=== PATIENT | male | born 1955 | race Caucasian/White ===

== ENCOUNTER 2017-02-21 13:11 | Emergency (ER) | payer MEDICAID ==
[2017-02-21 13:33] VITALS: BP 152/89
--- NOTE | 2017-02-21 13:43 | EDM.PDOC ---
ED HPI GENERAL MEDICAL PROBLEM - General Chief Complaint: General Stated Complaint: POSSIBLE RECURRENT GOUT Time Seen by Provider: 02/21/17 13:31 Source of Information: Reports: Patient History Limitations: Reports: No Limitations - History of Present Illness INITIAL COMMENTS - FREE TEXT/NARRATIVE: HISTORY AND PHYSICAL: History of present illness: Patient is a 61-year-old male who presents to the emergency room today with concerns of reoccurring gout. He states he does this frequently, and does take allopurinol routinely. States he ran out of prednisone, indomethacin, and vicoden for his flareups, and is hoping to get a refill. His primary care provider is in [place] but is out working and [place] for training at this time. He called his PCP and he was instructed to come to [place] for refills. Currently has pain in his left great toe and bilateral elbows. Tender to the touch and warmth to the area. Denies any recent injury or trauma. Review of systems: As per history of present illness and below otherwise all systems reviewed and negative. Past medical history: As per history of present illness and as reviewed below otherwise noncontributory. Surgical history: As per history of present illness and as reviewed below otherwise noncontributory. Social history: No reported history of drug or alcohol abuse. Family history: As per history of present illness and as reviewed below otherwise noncontributory. Physical exam: Gen.: Well-developed and well-nourished 61-year-old male. Appears nontoxic and in no acute distress. Alert and oriented. HEENT: Atraumatic, normocephalic, pupils reactive, negative for conjunctival pallor or scleral icterus, mucous membranes moist, throat clear, neck supple, nontender, trachea midline. Lungs: Clear to auscultation, breath sounds equal bilaterally, chest nontender. Heart: S1S2, regular, negative for clicks, rubs, or JVD. Abdomen: Soft, nondistended, nontender. Negative for masses or hepatosplenomegaly. Negative for costovertebral tenderness. Pelvis: Stable nontender. Genitourinary: Deferred. Rectal: Deferred. Extremities: Atraumatic, negative for cords or calf pain. Neurovascular unremarkable. Skin: Left great toe is erythematous and tender to palpation. Intact and dry. Neuro: Awake, alert, oriented. Cranial nerves II through XII unremarkable. Cerebellum unremarkable. Motor and sensory unremarkable throughout. Exam nonfocal. A prescription for Medrol Dosepak, take as directed, dispense 1-no refill. Colchicine 0.6 mg, 2 tabs now then 1 tab in an hour, dispense 3-no refill. Indomethacin 50 mg 1 tab 3 times a day when necessary 10 days, dispense 30-no refill. He should states that this is his usual medication regimen he takes when he has a flareup, he is aware of the medications and their usage. Discussed following up with his primary care provider for further refills. Voices understanding and is agreeable to plan of care. Denies any further questions at this time. Diagnostics: CBC, uric acid Therapeutics: [] Impression: Acute gout Plan: 1. Please take your prescriptions as directed. Please do not take any additional NSAIDs such as ibuprofen or Aleve while taking the indomethacin. Take this medication with food. For further medication refills please see her doctor in [place]. 2. Return to the ED as needed and as discussed. Definitive disposition and diagnosis as appropriate pending reevaluation and review of above. Onset: Today Duration: Day(s):, Chronic Location: Reports: Lower Extremity, Left Left 1-Hallux Pain Score (Numeric/FACES): 8 Left Elbow Pain Score (Numeric/FACES): 8 - Related Data Allergies Allergy/AdvReac Type Severity Reaction Status Date / Time No Known Allergies Allergy Verified 02/21/17 13:29 Home Meds: Home Meds Metoprolol Tartrate 50 mg PO BID 05/26/16 [History] Acetaminophen [Tylenol Extra Strength] 500 mg PO ASDIRECTED PRN 01/21/17 [ History] Allopurinol [Zyloprim] 100 mg PO DAILY #30 tablet 01/24/17 [Rx] Warfarin [Coumadin] 1 mg PO ASDIRECTED #30 tablet 01/24/17 [Rx] Hydrocodone/Acetaminophen [Vicodin 5-300 mg Tablet] 300 mg PO BID PRN 02/21/17 [ History] prednisoLONE [Millipred DP] 5 mg PO DAILY 02/21/17 [History] Past Medical History - Past Health History Medical/Surgical History: Denies Medical/Surgical History HEENT History: Reports: Other (See Below) Other HEENT History: ears cauterized when he was young. Cardiovascular History: Reports: Afib, Hypertension Other Cardiovascular History: stopped taking xarelto as could not afford it but is on adult asa Respiratory History: Reports: SOB Musculoskeletal History: Reports: Gout Other Musculoskeletal History: chronic pain in feet Other Neuro History: broken neck, Halo Psychiatric History: Reports: Addiction Hematologic History: Reports: None Immunologic History: Reports: None Oncologic (Cancer) History: Reports: None - Infectious Disease History Infectious Disease History: Reports: Other (See Below) Other Infectious Disease History: rickiets - Past Surgical History Head Surgeries/Procedures: Reports: None Other Cardiovascular Surgeries/Procedures: angiogram Oncologic Surgical History: Reports: None Social & Family History - Family History Family Medical History: Noncontributory - Tobacco Use Smoking Status *Q: Never Smoker Second Hand Smoke Exposure: No - Caffeine Use Caffeine Use: Reports: Coffee - Alcohol Use Days Per Week of Alcohol Use: 3 Number of Drinks Per Day: 0 Total Drinks Per Week: 0 - Recreational Drug Use Recreational Drug Use: No Drug Use in Last 12 Months: No Recreational Drug Type: Reports: Marijuana/Hashish Recreational Drug Use Frequency: Rarely - Living Situation & Occupation Living situation: Reports: Occupation: Employed ED ROS GENERAL - Review of Systems Review Of Systems: ROS reveals no pertinent complaints other than HPI. ED EXAM, GENERAL - Physical Exam Exam: See Below (See dictation) Course - Vital Signs Last Recorded V/S: Last Vital Signs Temp 96.2 F 02/21/17 13:31 Pulse 98 02/21/17 13:31 Resp 18 02/21/17 13:31 BP 152/89 H 02/21/17 13:31 Pulse Ox 98 02/21/17 13:31 - Orders/Labs/Meds Labs: Laboratory Tests 02/21/17 02/21/17 Range/Units 13:39 13:39 WBC 10.58 (4.0-11.0) K/uL RBC 5.16 (4.50-5.90) M/uL Hgb 16.5 (13.0-17.0) g/dL Hct 47.4 (38.0-50.0) % MCV 91.9 (80.0-98.0) fL MCH 32.0 (27.0-32.0) pg MCHC 34.8 (31.0-37.0) g/dL RDW Std Deviation 44.9 (28.0-62.0) fl RDW Coeff of Mckenna 13 (11.0-15.0) % Plt Count 234 (150-400) K/uL MPV 9.90 (7.40-12.00) fL Add Manual Diff YES Neutrophils % (Manual) 49 (48.0-80.0) % Lymphocytes % (Manual) 44 H (16.0-40.0) % Monocytes % (Manual) 5 (0.0-15.0) % Eosinophils % (Manual) 3 (0.0-7.0) % Nucleated RBC % 0.0 /100WBC Absolute Seg Neuts 5.2 (1.4-5.7) Lymphocytes # (Manual) 4.7 H (0.6-2.4) Monocytes # (Manual) 0.5 (0.0-0.8) Eosinophils # (Manual) 0.3 (0.0-0.7) Nucleated RBCs # 0 K/uL Uric Acid 8.0 H (2.1-7.4) mg/dL Departure - Departure Time of Disposition: 14:15 Disposition: Home, Self-Care 01 Clinical Impression: Gout Qualifiers: Gout site: toe Gout etiology: unspecified cause Chronicity: acute Laterality: left Qualified Code(s): M10.9 - Gout, unspecified - Discharge Information Referrals: PCP,None [Primary Care Provider] - Forms: ED Department Discharge Additional Instructions: My general discharge The following information is given to patients seen in the emergency department who are being discharged to home. This information is to outline your options for follow-up care. We provide all patients seen in our emergency department with a follow-up referral. The need for follow-up, as well as the timing and circumstances, are variable depending upon the specifics of your emergency department visit. If you don't have a primary care physician on staff, we will provide you with a referral. We always advise you to contact your personal physician following an emergency department visit to inform them of the circumstance of the visit and for follow-up with them and/or the need for any referrals to a consulting specialist. The emergency department will also refer you to a specialist when appropriate. This referral assures that you have the opportunity for follow-up care with a specialist. All of these measure are taken in an effort to provide you with optimal care, which includes your follow-up. Under all circumstances we always encourage you to contact your private physician who remains a resource for coordinating your care. When calling for follow-up care, please make the office aware that this follow-up is from your recent emergency room visit. If for any reason you are refused follow-up, please contact the [facility] Emergency Department at and asked to speak to the emergency department charge nurse. [facility] Primary Care [facility] [place] [phone] 1. Please take your prescriptions as directed. Please do not take any additional NSAIDs such as ibuprofen or Aleve while taking the indomethacin. Take this medication with food. For further medication refills please see her doctor in [place]. 2. Return to the ED as needed and as discussed.
== END 2017-02-21 14:22 | disposition home or self-care (01) ==
LOC: MW.ED 13:11
DX: M10.9 Gout, unspecified (principal); I10 Essential (primary) hypertension; I48.91 Unspecified atrial fibrillation; Z79.01 Long term (current) use of anticoagulants; Z79.899 Other long term (current) drug therapy
CPT/HCPCS: 36415; 84550; 85025; 99283

== ENCOUNTER 2020-05-11 15:44 | Observation (INO) | payer MEDICAID ==
[2020-05-11] MEDS ORDERED: Diltiazem 25 MG/5 ML SDV IVPUSH ONE ×3 (16:11→18:54)
[2020-05-11] MEDS ORDERED: Sodium Chloride 0.9% 1,000 ML IV ONE (16:11)
[2020-05-11] MEDS ORDERED: Sodium Chloride 0.9% 10 ML Syringe FLUSH PRN (16:11)
[2020-05-11] MEDS ORDERED: Sodium Chloride 0.9% 2.5 ML Syringe FLUSH PRN (16:11)
--- NOTE | 2020-05-11 16:13 | PCM.EKG ---
#1 Interpretation EKG Date: 05/11/20 Rhythm: A-Fib EKG Interpretation Comments: Heart rate = 171 bpm, atrial fibrillation with RVR, normal QRS interval, no STEMI. EKG and rhythm strip interpreted by me at 1530
--- NOTE | 2020-05-11 16:42 | CR ---
INDICATION: a fib w RVR TECHNIQUE: Chest 1 view. COMPARISON: None. FINDINGS: Cardiovascular and mediastinum: Heart size and vasculature are normal in caliber and appearance. Mediastinum is within normal limits. Lungs and pleural space: Lungs are clear. No sign of infiltrate or mass. No sign of pleural effusion. No pneumothorax. Bones and soft tissues: No significant findings. IMPRESSION: Unremarkable chest. Dictated by: Stephen Mederos MD @ 05/11/2020 16:41:09 (Electronically Signed)
[2020-05-11 16:45] LABS: BLOOD UREA NITROGEN,BUN 16 mg/dL (7.0-18.0); CARBON DIOXIDE,CO2 22.5 mmol/L (21.0-32.0); CHLORIDE,CL 100 mmol/L (98-107); GLUCOSE RANDOM 128 mg/dL (74-106); POTASSIUM,K 4.6 mmol/L (3.5-5.1); SODIUM,NA 139 mmol/L (136-148)
--- NOTE | 2020-05-11 18:27 | PCM.EKG ---
#2 Interpretation EKG Interpretation Comments: Heart rate = 112 bpm, atrial fibrillation, normal QRS interval, TW inversion on V3-V6, no STEMI. EKG and rhythm strip interpreted by me at 1811
[2020-05-11] MEDS ORDERED: Diltiazem 100 MG in Sodium Chloride 0.9% 100 ML IV SCH (18:30)
[2020-05-11] MEDS ORDERED: Ketorolac 30 MG/ML SDV IVPUSH ONE (18:34)
[2020-05-11] MEDS ORDERED: HYDROmorphone 2 MG/ML Syringe IVPUSH ONE (18:34)
[2020-05-11] MEDS ORDERED: Diltiazem 120 MG Cap.CD PO ONE (19:28)
[2020-05-11 19:37] LABS: CORONAVIRUS COVID-19 NAA NEGATIVE (NEGATIVE); INFLUENZA A NAA NEGATIVE (NEGATIVE); INFLUENZA B NAA NEGATIVE (NEGATIVE)
[2020-05-11] MEDS ORDERED: Iopamidol 755 MG/ML 500 ML Multipack Bottle IVPUSH STA (19:46)
--- NOTE | 2020-05-11 20:23 | PCM.HP.2 ---
H&P History of Present Illness - General Date of Service: 05/11/20 Admit Problem/Dx: Admission Diagnosis/Problem Admission Diagnosis/Problem Atrial fibrillation with rapid ventricular response Source of Information: Patient History Limitations: Reports: No Limitations - History of Present Illness Initial Comments - Free Text/Narative: 64-year-old male presents today complaining of left great toe pain as well as mild SOB and palpitations. He has a PMH of a-fib, CKD, HTN, CHF and gout. Patient reports that he ran out of his metoprolol several days ago. He also takes a blood thinner that starts with a "P" but cannot recall exactly what the name is. He states that he did take his blood this morning. For his toe pain, he usually takes colchicine and last took it a few days ago. He has not had any fevers, chills, sore throat, cough, chest pain, nausea, vomiting, abdominal pain, diarrhea, blood in stool, blood in urine, urinary urgency, numbness or tingling in extremities. In the ER, EKG showed a-fib with HR 112 and T-wave inversions in V3-V6. Creatinine was 1.4, D-dimer 0.85, BNP 204 and troponin was negative. UA positive for nitrites and 1+ bacteria. CXR unremarkable. COVID-19 test negative. Patient was given IV diltiazem push x 3 and then became rate controlled with HR [address] angio negative for PE. Patient admitted for further evaluation and treatment. - Related Data Allergies/Adverse Reactions: Allergies Allergy/AdvReac Type Severity Reaction Status Date / Time No Known Allergies Allergy Verified 05/11/20 15:56 Home Medications: Home Meds Colchicine 1 tab PO Q12H #10 tablet 01/02/20 [Rx] Metoprolol Tartrate 25 mg PO DAILY 05/11/20 [History] Past Medical History - Past Health History Medical/Surgical History: Denies Medical/Surgical History HEENT History: Reports: Other (See Below) Other HEENT History: ears cauterized when he was young. Cardiovascular History: Reports: Afib, Heart Failure, High Cholesterol, Hypertension Other Cardiovascular History: stopped taking xarelto as could not afford it but is on adult asa Respiratory History: Reports: SOB Musculoskeletal History: Reports: Fracture, Gout Other Musculoskeletal History: chronic pain in feet Other Neuro History: broken neck, Halo Psychiatric History: Reports: Addiction Endocrine/Metabolic History: Reports: Hypothyroidism Hematologic History: Reports: None Immunologic History: Reports: None Oncologic (Cancer) History: Reports: None - Infectious Disease History Infectious Disease History: Reports: Other (See Below) Other Infectious Disease History: rickiets - Past Surgical History Head Surgeries/Procedures: Reports: None HEENT Surgical History: Reports: None Cardiovascular Surgical History: Reports: Other (See Below) Other Cardiovascular Surgeries/Procedures: angiogram Neurological Surgical History: Reports: C-Spine Musculoskeletal Surgical History: Reports: Arthroscopic Knee, Other (See Below) Oncologic Surgical History: Reports: None Social & Family History - Family History Family Medical History: No Pertinent Family History - Tobacco Use Tobacco Use Status *Q: Never Tobacco User - Caffeine Use Caffeine Use: Reports: None - Recreational Drug Use Recreational Drug Use: No - Living Situation & Occupation Living situation: Reports: Single, Alone Occupation: Employed (lease purchase truck driver) H&P Review of Systems - Review of Systems: Review Of Systems: Comprehensive ROS is negative, except as noted in HPI. Exam - Exam Exam: See Below - Vital Signs Vital Signs: Last Vital Signs Temp 36.6 C 05/11/20 18:50 Pulse 89 05/11/20 19:02 Resp 12 05/11/20 19:02 BP 116/78 05/11/20 19:02 Pulse Ox 98 05/11/20 19:02 Weight: 95.254 kg - Exam General: Alert, Oriented, Cooperative, Other (NAD) HEENT: Conjunctiva Clear, EOMI, Hearing Intact, Pupils Equal, Pupils Reactive Neck: Supple, Trachea Midline. No: JVD Lungs: Clear to Auscultation, Normal Respiratory Effort Cardiovascular: Irregular Rhythm, Tachycardia GI/Abdominal Exam: Normal Bowel Sounds, Soft, Non-Tender, No Distention Extremities: Normal Inspection, Other (Left big toe edema, mild erythema) Peripheral Pulses: 2+: Radial (L), Radial (R) Skin: Warm, Dry, Intact Neurological: Cranial Nerves Intact, Strength Equal Bilateral, Normal Speech, Normal Tone Psychiatric: Alert, Normal Affect, Normal Mood - Patient Data Lab Results Last 24 hrs: Laboratory Results - last 24 hr 05/11/20 05/11/20 05/11/20 Range/Units 16:11 16:11 16:11 WBC 10.90 (4.0-11.0) K/uL RBC 5.90 (4.50-5.90) M/uL Hgb 18.9 H (13.0-17.0) g/dL Hct 54.4 H (38.0-50.0) % MCV 92.2 (80.0-98.0) fL MCH 32.0 (27.0-32.0) pg MCHC 34.7 (31.0-37.0) g/dL RDW Std Deviation 48.8 (28.0-62.0) fl RDW Coeff of Mckenna 15 (11.0-15.0) % Plt Count 240 (150-400) K/uL MPV 10.00 (7.40-12.00) fL Neut % (Auto) 57.1 (48.0-80.0) % Lymph % (Auto) 34.2 (16.0-40.0) % [place] % (Auto) 8.2 (0.0-15.0) % Eos % (Auto) 0.3 (0.0-7.0) % Baso % (Auto) 0.2 (0.0-1.5) % Neut # (Auto) 6.2 H (1.4-5.7) K/uL Lymph # (Auto) 3.7 H (0.6-2.4) K/uL [place] # (Auto) 0.9 H (0.0-0.8) K/uL Eos # (Auto) 0.0 (0.0-0.7) K/uL Baso # (Auto) 0.0 (0.0-0.1) K/uL Nucleated RBC % 0.0 /100WBC Nucleated RBCs # 0 K/uL D-Dimer, Quantitative (0.0-0.50) mg/L FEU Sodium 139 (136-148) mmol/L Potassium 4.6 (3.5-5.1) mmol/L Chloride 100 (98-107) mmol/L Carbon Dioxide 22.5 (21.0-32.0) mmol/L BUN 16 (7.0-18.0) mg/dL Creatinine 1.4 H (0.8-1.3) mg/dL Est Cr Clr Drug Dosing 60.05 mL/min Estimated GFR (MDRD) 51.4 ml/min Glucose 128 H (74-106) mg/dL Calcium 9.7 (8.5-10.1) mg/dL Magnesium (1.8-2.4) mg/dL Total Bilirubin 2.2 H (0.2-1.0) mg/dL AST 23 (15-37) IU/L ALT 21 (14-63) IU/L Alkaline Phosphatase 63 (46-116) U/L Troponin I < 0.050 (0.000-0.056) ng/mL B-Natriuretic Peptide 204 H (<100) PG/ML Total Protein 8.3 H (6.4-8.2) g/dL Albumin 4.1 (3.4-5.0) g/dL Globulin 4.2 H (2.6-4.0) g/dL Albumin/Globulin Ratio 1.0 (0.9-1.6) Urine Color Urine Appearance Urine pH (5.0-8.0) Ur Specific [place] (1.001-1.035) Urine Protein (NEGATIVE) mg/dL Urine Glucose (UA) (NEGATIVE) mg/dL Urine Ketones (NEGATIVE) mg/dL Urine Occult Blood (NEGATIVE) Urine Nitrite (NEGATIVE) Urine Bilirubin (NEGATIVE) Urine Ictotest Urine Urobilinogen (<2.0) EU/dL Ur Leukocyte Esterase (NEGATIVE) U Hyaline Cast (Auto) (0-2/LPF) Urine RBC (0-2/HPF) Urine WBC (0-5/HPF) Ur Epithelial Cells (NONE-FEW) Urine Bacteria (NEGATIVE) Influenza Type A RNA (NEGATIVE) Influenza Type B RNA (NEGATIVE) SARS-CoV-2 RNA (FRANSICO) (NEGATIVE) 05/11/20 05/11/20 05/11/20 Range/Units 16:11 16:11 17:10 WBC (4.0-11.0) K/uL RBC (4.50-5.90) M/uL Hgb (13.0-17.0) g/dL Hct (38.0-50.0) % MCV (80.0-98.0) fL MCH (27.0-32.0) pg MCHC (31.0-37.0) g/dL RDW Std Deviation (28.0-62.0) fl RDW Coeff of Mckenna (11.0-15.0) % Plt Count (150-400) K/uL MPV (7.40-12.00) fL Neut % (Auto) (48.0-80.0) % Lymph % (Auto) (16.0-40.0) % [place] % (Auto) (0.0-15.0) % Eos % (Auto) (0.0-7.0) % Baso % (Auto) (0.0-1.5) % Neut # (Auto) (1.4-5.7) K/uL Lymph # (Auto) (0.6-2.4) K/uL [place] # (Auto) (0.0-0.8) K/uL Eos # (Auto) (0.0-0.7) K/uL Baso # (Auto) (0.0-0.1) K/uL Nucleated RBC % /100WBC Nucleated RBCs # K/uL D-Dimer, Quantitative 0.85 H (0.0-0.50) mg/L FEU Sodium (136-148) mmol/L Potassium (3.5-5.1) mmol/L Chloride (98-107) mmol/L Carbon Dioxide (21.0-32.0) mmol/L BUN (7.0-18.0) mg/dL Creatinine (0.8-1.3) mg/dL Est Cr Clr Drug Dosing mL/min Estimated GFR (MDRD) ml/min Glucose (74-106) mg/dL Calcium (8.5-10.1) mg/dL Magnesium 2.2 (1.8-2.4) mg/dL Total Bilirubin (0.2-1.0) mg/dL AST (15-37) IU/L ALT (14-63) IU/L Alkaline Phosphatase (46-116) U/L Troponin I (0.000-0.056) ng/mL B-Natriuretic Peptide (<100) PG/ML Total Protein (6.4-8.2) g/dL Albumin (3.4-5.0) g/dL Globulin (2.6-4.0) g/dL Albumin/Globulin Ratio (0.9-1.6) Urine Color YELLOW Urine Appearance HAZY Urine pH 5.0 (5.0-8.0) Ur Specific [place] >= 1.030 (1.001-1.035) Urine Protein 30 H (NEGATIVE) mg/dL Urine Glucose (UA) NEGATIVE (NEGATIVE) mg/dL Urine Ketones 15 H (NEGATIVE) mg/dL Urine Occult Blood TRACE-INTACT H (NEGATIVE) Urine Nitrite POSITIVE H (NEGATIVE) Urine Bilirubin LARGE H (NEGATIVE) Urine Ictotest NEGATIVE Urine Urobilinogen 1.0 (<2.0) EU/dL Ur Leukocyte Esterase NEGATIVE (NEGATIVE) U Hyaline Cast (Auto) MODERATE (0-2/LPF) Urine RBC 0-2 (0-2/HPF) Urine WBC 0-3 (0-5/HPF) Ur Epithelial Cells FEW (NONE-FEW) Urine Bacteria 1+ H (NEGATIVE) Influenza Type A RNA (NEGATIVE) Influenza Type B RNA (NEGATIVE) SARS-CoV-2 RNA (FRANSICO) (NEGATIVE) 05/11/20 Range/Units 18:45 WBC (4.0-11.0) K/uL RBC (4.50-5.90) M/uL Hgb (13.0-17.0) g/dL Hct (38.0-50.0) % MCV (80.0-98.0) fL MCH (27.0-32.0) pg MCHC (31.0-37.0) g/dL RDW Std Deviation (28.0-62.0) fl RDW Coeff of Mckenna (11.0-15.0) % Plt Count (150-400) K/uL MPV (7.40-12.00) fL Neut % (Auto) (48.0-80.0) % Lymph % (Auto) (16.0-40.0) % [place] % (Auto) (0.0-15.0) % Eos % (Auto) (0.0-7.0) % Baso % (Auto) (0.0-1.5) % Neut # (Auto) (1.4-5.7) K/uL Lymph # (Auto) (0.6-2.4) K/uL [place] # (Auto) (0.0-0.8) K/uL Eos # (Auto) (0.0-0.7) K/uL Baso # (Auto) (0.0-0.1) K/uL Nucleated RBC % /100WBC Nucleated RBCs # K/uL D-Dimer, Quantitative (0.0-0.50) mg/L FEU Sodium (136-148) mmol/L Potassium (3.5-5.1) mmol/L Chloride (98-107) mmol/L Carbon Dioxide (21.0-32.0) mmol/L BUN (7.0-18.0) mg/dL Creatinine (0.8-1.3) mg/dL Est Cr Clr Drug Dosing mL/min Estimated GFR (MDRD) ml/min Glucose (74-106) mg/dL Calcium (8.5-10.1) mg/dL Magnesium (1.8-2.4) mg/dL Total Bilirubin (0.2-1.0) mg/dL AST (15-37) IU/L ALT (14-63) IU/L Alkaline Phosphatase (46-116) U/L Troponin I (0.000-0.056) ng/mL B-Natriuretic Peptide (<100) PG/ML Total Protein (6.4-8.2) g/dL Albumin (3.4-5.0) g/dL Globulin (2.6-4.0) g/dL Albumin/Globulin Ratio (0.9-1.6) Urine Color Urine Appearance Urine pH (5.0-8.0) Ur Specific [place] (1.001-1.035) Urine Protein (NEGATIVE) mg/dL Urine Glucose (UA) (NEGATIVE) mg/dL Urine Ketones (NEGATIVE) mg/dL Urine Occult Blood (NEGATIVE) Urine Nitrite (NEGATIVE) Urine Bilirubin (NEGATIVE) Urine Ictotest Urine Urobilinogen (<2.0) EU/dL Ur Leukocyte Esterase (NEGATIVE) U Hyaline Cast (Auto) (0-2/LPF) Urine RBC (0-2/HPF) Urine WBC (0-5/HPF) Ur Epithelial Cells (NONE-FEW) Urine Bacteria (NEGATIVE) Influenza Type A RNA NEGATIVE (NEGATIVE) Influenza Type B RNA NEGATIVE (NEGATIVE) SARS-CoV-2 RNA (FRANSICO) NEGATIVE (NEGATIVE) Result Diagrams: 05/11/20 16:11 05/11/20 16:11 Sepsis Event Note - Evaluation Sepsis Screening Result: No Definite Risk - Focused Exam Vital Signs: Vital Signs Temp Pulse Resp BP Pulse Ox 05/11/20 19:02 89 12 116/78 98 05/11/20 18:50 36.6 C 111 H 16 106/76 98 05/11/20 17:36 106 H 20 112/58 L 98 05/11/20 17:17 113 H 16 129/62 98 05/11/20 17:11 97 13 91/58 L 99 05/11/20 16:21 128 H 111/68 05/11/20 15:58 36.4 C 76 16 118/80 98 - Problem List (1) Atrial fibrillation with rapid ventricular response SNOMED Code(s): 909866561759312 ICD Code: I48.91 - UNSPECIFIED ATRIAL FIBRILLATION Status: Acute Priority: High Current Visit: No (2) HTN (hypertension) SNOMED Code(s): 84699399 ICD Code: I10 - ESSENTIAL (PRIMARY) HYPERTENSION Status: Acute Current Visit: Yes (3) UTI (urinary tract infection) SNOMED Code(s): 25762221 ICD Code: N39.0 - URINARY TRACT INFECTION, SITE NOT SPECIFIED Status: Acute Current Visit: Yes (4) Gout attack SNOMED Code(s): 563526640 ICD Code: M10.9 - GOUT, UNSPECIFIED Status: Resolved Priority: High Current Visit: No Qualifiers: (5) CHF (congestive heart failure) SNOMED Code(s): 82678597 ICD Code: I50.9 - HEART FAILURE, UNSPECIFIED Status: Resolved Priority: High Current Visit: No Qualifiers: (6) Chronic renal insufficiency SNOMED Code(s): 614324237 ICD Code: N18.9 - CHRONIC KIDNEY DISEASE, UNSPECIFIED Status: Acute Current Visit: No Problem List Initiated/Reviewed/Updated: Yes Orders Last 24hrs: Active Orders 24 hr Category Date Time Status Cardiac Monitoring [RC] . DIRECTED Care 05/11/20 16:11 Active EKG Documentation Completion [RC] STAT Care 05/11/20 16:11 Active EKG Documentation Completion [RC] STAT Care 05/11/20 17:56 Active Ang Chest [CT] Stat Exams 05/11/20 19:30 Taken CULTURE URINE [RM] Stat Lab 05/11/20 17:10 Received Metoprolol Tartrate [Lopressor] Med 05/11/20 20:15 Ordered 25 mg PO Q12H Sodium Chloride 0.9% [Saline Flush] Med 05/11/20 16:11 Active 10 ml FLUSH ASDIRECTED PRN Sodium Chloride 0.9% [Saline Flush] Med 05/11/20 16:11 Active 2.5 ml FLUSH ASDIRECTED PRN Saline Lock Insert [OM.PC] Stat Oth 05/11/20 16:11 Ordered Medication Orders Metoprolol Tartrate (Lopressor) 25 mg PO Q12H DAVID Sodium Chloride (Saline Flush) 2.5 ml FLUSH ASDIRECTED PRN PRN Reason: Keep Vein Open Last Admin: 05/11/20 16:16 Dose: 2.5 ml Documented by: MOHSEN Sodium Chloride (Saline Flush) 10 ml FLUSH ASDIRECTED PRN PRN Reason: Keep Vein Open Last Admin: 05/11/20 16:16 Dose: 10 ml Documented by: MOHSEN Assessment/Plan Comment:: Assessment and Plan: 1. Atrial fibrillation, rate controlled: - Admit to med/surg. Patient on telemetry. Patient was given IV diltiazem push x 3 in the ER and then became rate controlled. Will start metoprolol tartrate 25 mg BID. Patient took anti-coagulant medicine this AM but cannot recall name, w ill need to confirm medication with pharmacy. - CT angio: no PE. 2. Acute gout of left big toe: - Colchicine 1.2 mg PO x1, then 0.6 mg 1 h later x 1. 3. UTI: - IV rocephin. 4. Past medical history of CKD, HTN and CHF: - Continue home medications. 5. DVT prophylaxis: - SCD's for now. Will resume home anticoagulation medicine once confirmed.
[2020-05-11] MEDS: Metoprolol Tartrate 25 MG Tab PO SCH (20:26)
--- NOTE | 2020-05-11 20:28 | CT ---
INDICATION: Chest pain. Shortness of breath. Elevated D-dimer. Evaluate for pulmonary emboli. CT CHEST WITH CONTRAST TECHNIQUE: Multidetector CT imaging was performed through the chest following intravenous contrast administration using 100 mL Isovue 370. Coronal and sagittal reconstructions were generated. COMPARISON: None. FINDINGS: Lungs and airways: Mild dependent lung atelectasis. No confluent pulmonary consolidation identified. Central airways are patent. Pleura and pleural spaces: No pleural effusions or pneumothorax. Heart and mediastinum: Borderline cardiomegaly. No significant pericardial effusion. No pathologically enlarged mediastinal lymph nodes. Vascular structures: No filling defects in the pulmonary arterial tree to suggest pulmonary emboli. Normal caliber thoracic aorta. Moderate coronary artery calcifications. Chest wall and axillae: No mass or axillary lymphadenopathy. Osseous structures: Spinal degenerative changes. Upper abdomen: Unremarkable. IMPRESSION: 1. No pulmonary emboli or other acute intrathoracic abnormality identified. 2. Borderline cardiomegaly. 3. Coronary artery calcifications. SIMON DELGADILLO MD [facility] Dictated by Miguel Delgadillo MD @ 05/11/2020 8:25:40 PM Dictated by: Miguel Delgadillo MD @ 05/11/2020 20:27:09 (Electronically Signed)
[2020-05-11] MEDS ORDERED: Acetaminophen 325 MG Tab PO PRN (20:43)
[2020-05-11] MEDS ORDERED: Morphine 10 MG/ML Syringe IVPUSH PRN (20:43)
[2020-05-11] MEDS ORDERED: Ondansetron 4 MG/2 ML SDV IVPUSH PRN (20:43)
[2020-05-11] MEDS ORDERED: Colchicine 0.6 MG Tab PO ONE ×2 (20:45→21:45)
[2020-05-11] MEDS: Morphine 2 MG/ML SYRINGE IVPUSH PRN (22:36)
[2020-05-11] MEDS: cefTRIAXone 1 GM in Premix Bag 1 BAG IV SCH (22:38)
[2020-05-12] MEDS: Morphine 2 MG/ML SYRINGE IVPUSH PRN ×5 (01:41→20:15)
[2020-05-12] MEDS ORDERED: Colchicine 0.6 MG Tab ONE (01:54)
[2020-05-12 06:01] LABS: CARBON DIOXIDE,CO2 20.7 mmol/L (21.0-32.0); POTASSIUM,K 4.1 mmol/L (3.5-5.1)
[2020-05-12] MEDS ORDERED: Diltiazem 25 MG/5 ML SDV IVPUSH ONE (06:31)
[2020-05-12] MEDS ORDERED: Diltiazem 25 MG/5 ML SDV IVPUSH PRN (06:45)
[2020-05-12] MEDS: Metoprolol Tartrate 25 MG Tab PO SCH ×2 (08:07→20:14)
[2020-05-12] MEDS: Apixaban 5 MG Tab PO SCH ×2 (11:17→22:11)
[2020-05-12] MEDS: Colchicine 0.6 MG Tab PO SCH (11:17)
[2020-05-12] MEDS: Diltiazem 120 MG Cap.CD PO SCH (12:19)
--- NOTE | 2020-05-12 13:13 | PCM.PN ---
- General Info Date of Service: 05/12/20 Admission Dx/Problem (Free Text): Admission Diagnosis/Problem Admission Diagnosis/Problem Atrial fibrillation with rapid ventricular response Subjective Update: Reports he is having pain to the left great toe. This has improved slightly. Denies any chest pain shortness of breath or palpitations. Did had elevated heart rate early this morning and was given IV diltiazem. Currently feeling w ell. Functional Status: Reports: Pain Controlled, Tolerating Diet, Ambulating - Review of Systems General: Reports: No Symptoms. Denies: Fatigue, Malaise HEENT: Reports: No Symptoms. Denies: Headaches, Sore Throat, Visual Changes Pulmonary: Reports: No Symptoms. Denies: Shortness of Breath Cardiovascular: Reports: No Symptoms. Denies: Chest Pain Gastrointestinal: Reports: No Symptoms. Denies: Abdominal Pain, Nausea, Vomiting Genitourinary: Reports: No Symptoms. Denies: Dysuria, Frequency, Burning, Ur gency Musculoskeletal: Reports: No Symptoms Skin: Reports: Other (Erythema over left great toe) Neurological: Reports: No Symptoms Psychiatric: Reports: No Symptoms - Patient Data Vitals - Most Recent: Last Vital Signs Temp 98.0 F 05/12/20 11:20 Pulse 105 H 05/12/20 12:19 Resp 16 05/12/20 11:20 BP 111/90 05/12/20 12:19 Pulse Ox 96 05/12/20 11:20 Weight - Most Recent: 95.254 kg I&O - Last 24 Hours: Intake & Output 05/11/20 05/12/20 05/12/20 22:59 06:59 14:59 Output Total 200 Balance -200 Lab Results Last 24 Hours: Laboratory Results - last 24 hr 05/11/20 05/11/20 05/11/20 Range/Units 16:11 16:11 16:11 WBC 10.90 (4.0-11.0) K/uL RBC 5.90 (4.50-5.90) M/uL Hgb 18.9 H (13.0-17.0) g/dL Hct 54.4 H (38.0-50.0) % MCV 92.2 (80.0-98.0) fL MCH 32.0 (27.0-32.0) pg MCHC 34.7 (31.0-37.0) g/dL RDW Std Deviation 48.8 (28.0-62.0) fl RDW Coeff of Mckenna 15 (11.0-15.0) % Plt Count 240 (150-400) K/uL MPV 10.00 (7.40-12.00) fL Neut % (Auto) 57.1 (48.0-80.0) % Lymph % (Auto) 34.2 (16.0-40.0) % [place] % (Auto) 8.2 (0.0-15.0) % Eos % (Auto) 0.3 (0.0-7.0) % Baso % (Auto) 0.2 (0.0-1.5) % Neut # (Auto) 6.2 H (1.4-5.7) K/uL Lymph # (Auto) 3.7 H (0.6-2.4) K/uL [place] # (Auto) 0.9 H (0.0-0.8) K/uL Eos # (Auto) 0.0 (0.0-0.7) K/uL Baso # (Auto) 0.0 (0.0-0.1) K/uL Nucleated RBC % 0.0 /100WBC Nucleated RBCs # 0 K/uL D-Dimer, Quantitative (0.0-0.50) mg/L FEU Sodium 139 (136-148) mmol/L Potassium 4.6 (3.5-5.1) mmol/L Chloride 100 (98-107) mmol/L Carbon Dioxide 22.5 (21.0-32.0) mmol/L BUN 16 (7.0-18.0) mg/dL Creatinine 1.4 H (0.8-1.3) mg/dL Est Cr Clr Drug Dosing 60.05 mL/min Estimated GFR (MDRD) 51.4 ml/min Glucose 128 H (74-106) mg/dL Uric Acid (2.6-7.2) mg/dL Calcium 9.7 (8.5-10.1) mg/dL Phosphorus (2.6-4.7) mg/dL Magnesium (1.8-2.4) mg/dL Total Bilirubin 2.2 H (0.2-1.0) mg/dL AST 23 (15-37) IU/L ALT 21 (14-63) IU/L Alkaline Phosphatase 63 (46-116) U/L Troponin I < 0.050 (0.000-0.056) ng/mL B-Natriuretic Peptide 204 H (<100) PG/ML Total Protein 8.3 H (6.4-8.2) g/dL Albumin 4.1 (3.4-5.0) g/dL Globulin 4.2 H (2.6-4.0) g/dL Albumin/Globulin Ratio 1.0 (0.9-1.6) TSH 3rd Generation (0.36-3.74) uIU/mL Urine Color Urine Appearance Urine pH (5.0-8.0) Ur Specific [place] (1.001-1.035) Urine Protein (NEGATIVE) mg/dL Urine Glucose (UA) (NEGATIVE) mg/dL Urine Ketones (NEGATIVE) mg/dL Urine Occult Blood (NEGATIVE) Urine Nitrite (NEGATIVE) Urine Bilirubin (NEGATIVE) Urine Ictotest Urine Urobilinogen (<2.0) EU/dL Ur Leukocyte Esterase (NEGATIVE) U Hyaline Cast (Auto) (0-2/LPF) Urine RBC (0-2/HPF) Urine WBC (0-5/HPF) Ur Epithelial Cells (NONE-FEW) Urine Bacteria (NEGATIVE) Influenza Type A RNA (NEGATIVE) Influenza Type B RNA (NEGATIVE) SARS-CoV-2 RNA (FRANSICO) (NEGATIVE) 05/11/20 05/11/20 05/11/20 Range/Units 16:11 16:11 16:11 WBC (4.0-11.0) K/uL RBC (4.50-5.90) M/uL Hgb (13.0-17.0) g/dL Hct (38.0-50.0) % MCV (80.0-98.0) fL MCH (27.0-32.0) pg MCHC (31.0-37.0) g/dL RDW Std Deviation (28.0-62.0) fl RDW Coeff of Mckenna (11.0-15.0) % Plt Count (150-400) K/uL MPV (7.40-12.00) fL Neut % (Auto) (48.0-80.0) % Lymph % (Auto) (16.0-40.0) % [place] % (Auto) (0.0-15.0) % Eos % (Auto) (0.0-7.0) % Baso % (Auto) (0.0-1.5) % Neut # (Auto) (1.4-5.7) K/uL Lymph # (Auto) (0.6-2.4) K/uL [place] # (Auto) (0.0-0.8) K/uL Eos # (Auto) (0.0-0.7) K/uL Baso # (Auto) (0.0-0.1) K/uL Nucleated RBC % /100WBC Nucleated RBCs # K/uL D-Dimer, Quantitative 0.85 H (0.0-0.50) mg/L FEU Sodium (136-148) mmol/L Potassium (3.5-5.1) mmol/L Chloride (98-107) mmol/L Carbon Dioxide (21.0-32.0) mmol/L BUN (7.0-18.0) mg/dL Creatinine (0.8-1.3) mg/dL Est Cr Clr Drug Dosing mL/min Estimated GFR (MDRD) ml/min Glucose (74-106) mg/dL Uric Acid 11.4 H (2.6-7.2) mg/dL Calcium (8.5-10.1) mg/dL Phosphorus (2.6-4.7) mg/dL Magnesium 2.2 2.1 (1.8-2.4) mg/dL Total Bilirubin (0.2-1.0) mg/dL AST (15-37) IU/L ALT (14-63) IU/L Alkaline Phosphatase (46-116) U/L Troponin I (0.000-0.056) ng/mL B-Natriuretic Peptide (<100) PG/ML Total Protein (6.4-8.2) g/dL Albumin (3.4-5.0) g/dL Globulin (2.6-4.0) g/dL Albumin/Globulin Ratio (0.9-1.6) TSH 3rd Generation 1.19 (0.36-3.74) uIU/mL Urine Color Urine Appearance Urine pH (5.0-8.0) Ur Specific [place] (1.001-1.035) Urine Protein (NEGATIVE) mg/dL Urine Glucose (UA) (NEGATIVE) mg/dL Urine Ketones (NEGATIVE) mg/dL Urine Occult Blood (NEGATIVE) Urine Nitrite (NEGATIVE) Urine Bilirubin (NEGATIVE) Urine Ictotest Urine Urobilinogen (<2.0) EU/dL Ur Leukocyte Esterase (NEGATIVE) U Hyaline Cast (Auto) (0-2/LPF) Urine RBC (0-2/HPF) Urine WBC (0-5/HPF) Ur Epithelial Cells (NONE-FEW) Urine Bacteria (NEGATIVE) Influenza Type A RNA (NEGATIVE) Influenza Type B RNA (NEGATIVE) SARS-CoV-2 RNA (FRANSICO) (NEGATIVE) 05/11/20 05/11/20 05/12/20 Range/Units 17:10 18:45 05:17 WBC 7.60 (4.0-11.0) K/uL RBC 4.96 (4.50-5.90) M/uL Hgb 15.6 (13.0-17.0) g/dL Hct 46.0 (38.0-50.0) % MCV 92.7 (80.0-98.0) fL MCH 31.5 (27.0-32.0) pg MCHC 33.9 (31.0-37.0) g/dL RDW Std Deviation 48.2 (28.0-62.0) fl RDW Coeff of Mckenna 14 (11.0-15.0) % Plt Count 210 (150-400) K/uL MPV 10.00 (7.40-12.00) fL Neut % (Auto) 42.4 L (48.0-80.0) % Lymph % (Auto) 45.3 H (16.0-40.0) % [place] % (Auto) 11.1 (0.0-15.0) % Eos % (Auto) 0.9 (0.0-7.0) % Baso % (Auto) 0.3 (0.0-1.5) % Neut # (Auto) 3.2 (1.4-5.7) K/uL Lymph # (Auto) 3.4 H (0.6-2.4) K/uL [place] # (Auto) 0.8 (0.0-0.8) K/uL Eos # (Auto) 0.1 (0.0-0.7) K/uL Baso # (Auto) 0.0 (0.0-0.1) K/uL Nucleated RBC % 0.0 /100WBC Nucleated RBCs # 0 K/uL D-Dimer, Quantitative (0.0-0.50) mg/L FEU Sodium (136-148) mmol/L Potassium (3.5-5.1) mmol/L Chloride (98-107) mmol/L Carbon Dioxide (21.0-32.0) mmol/L BUN (7.0-18.0) mg/dL Creatinine (0.8-1.3) mg/dL Est Cr Clr Drug Dosing mL/min Estimated GFR (MDRD) ml/min Glucose (74-106) mg/dL Uric Acid (2.6-7.2) mg/dL Calcium (8.5-10.1) mg/dL Phosphorus (2.6-4.7) mg/dL Magnesium (1.8-2.4) mg/dL Total Bilirubin (0.2-1.0) mg/dL AST (15-37) IU/L ALT (14-63) IU/L Alkaline Phosphatase (46-116) U/L Troponin I (0.000-0.056) ng/mL B-Natriuretic Peptide (<100) PG/ML Total Protein (6.4-8.2) g/dL Albumin (3.4-5.0) g/dL Globulin (2.6-4.0) g/dL Albumin/Globulin Ratio (0.9-1.6) TSH 3rd Generation (0.36-3.74) uIU/mL Urine Color YELLOW Urine Appearance HAZY Urine pH 5.0 (5.0-8.0) Ur Specific [place] >= 1.030 (1.001-1.035) Urine Protein 30 H (NEGATIVE) mg/dL Urine Glucose (UA) NEGATIVE (NEGATIVE) mg/dL Urine Ketones 15 H (NEGATIVE) mg/dL Urine Occult Blood TRACE-INTACT H (NEGATIVE) Urine Nitrite POSITIVE H (NEGATIVE) Urine Bilirubin LARGE H (NEGATIVE) Urine Ictotest NEGATIVE Urine Urobilinogen 1.0 (<2.0) EU/dL Ur Leukocyte Esterase NEGATIVE (NEGATIVE) U Hyaline Cast (Auto) MODERATE (0-2/LPF) Urine RBC 0-2 (0-2/HPF) Urine WBC 0-3 (0-5/HPF) Ur Epithelial Cells FEW (NONE-FEW) Urine Bacteria 1+ H (NEGATIVE) Influenza Type A RNA NEGATIVE (NEGATIVE) Influenza Type B RNA NEGATIVE (NEGATIVE) SARS-CoV-2 RNA (FRANSICO) NEGATIVE (NEGATIVE) 05/12/20 Range/Units 05:17 WBC (4.0-11.0) K/uL RBC (4.50-5.90) M/uL Hgb (13.0-17.0) g/dL Hct (38.0-50.0) % MCV (80.0-98.0) fL MCH (27.0-32.0) pg MCHC (31.0-37.0) g/dL RDW Std Deviation (28.0-62.0) fl RDW Coeff of Mckenna (11.0-15.0) % Plt Count (150-400) K/uL MPV (7.40-12.00) fL Neut % (Auto) (48.0-80.0) % Lymph % (Auto) (16.0-40.0) % [place] % (Auto) (0.0-15.0) % Eos % (Auto) (0.0-7.0) % Baso % (Auto) (0.0-1.5) % Neut # (Auto) (1.4-5.7) K/uL Lymph # (Auto) (0.6-2.4) K/uL [place] # (Auto) (0.0-0.8) K/uL Eos # (Auto) (0.0-0.7) K/uL Baso # (Auto) (0.0-0.1) K/uL Nucleated RBC % /100WBC Nucleated RBCs # K/uL D-Dimer, Quantitative (0.0-0.50) mg/L FEU Sodium 140 (136-148) mmol/L Potassium 4.1 (3.5-5.1) mmol/L Chloride 106 (98-107) mmol/L Carbon Dioxide 20.7 L (21.0-32.0) mmol/L BUN 21 H (7.0-18.0) mg/dL Creatinine 1.3 (0.8-1.3) mg/dL Est Cr Clr Drug Dosing 64.67 mL/min Estimated GFR (MDRD) 55.9 ml/min Glucose 87 (74-106) mg/dL Uric Acid (2.6-7.2) mg/dL Calcium 8.5 (8.5-10.1) mg/dL Phosphorus 4.3 (2.6-4.7) mg/dL Magnesium 2.1 (1.8-2.4) mg/dL Total Bilirubin 1.0 (0.2-1.0) mg/dL AST 17 (15-37) IU/L ALT 18 (14-63) IU/L Alkaline Phosphatase 48 (46-116) U/L Troponin I (0.000-0.056) ng/mL B-Natriuretic Peptide (<100) PG/ML Total Protein 6.7 (6.4-8.2) g/dL Albumin 3.4 (3.4-5.0) g/dL Globulin 3.3 (2.6-4.0) g/dL Albumin/Globulin Ratio 1.0 (0.9-1.6) TSH 3rd Generation (0.36-3.74) uIU/mL Urine Color Urine Appearance Urine pH (5.0-8.0) Ur Specific [place] (1.001-1.035) Urine Protein (NEGATIVE) mg/dL Urine Glucose (UA) (NEGATIVE) mg/dL Urine Ketones (NEGATIVE) mg/dL Urine Occult Blood (NEGATIVE) Urine Nitrite (NEGATIVE) Urine Bilirubin (NEGATIVE) Urine Ictotest Urine Urobilinogen (<2.0) EU/dL Ur Leukocyte Esterase (NEGATIVE) U Hyaline Cast (Auto) (0-2/LPF) Urine RBC (0-2/HPF) Urine WBC (0-5/HPF) Ur Epithelial Cells (NONE-FEW) Urine Bacteria (NEGATIVE) Influenza Type A RNA (NEGATIVE) Influenza Type B RNA (NEGATIVE) SARS-CoV-2 RNA (FRANSICO) (NEGATIVE) Med Orders - Current: Current Medications Acetaminophen (Tylenol) 650 mg PO Q4H PRN PRN Reason: Pain (Mild 1-3)/fever Apixaban (Eliquis) 5 mg PO BID [facility] Last Admin: 05/12/20 11:17 Dose: 5 mg Documented by: Colchicine (Colcrys) 0.6 mg PO DAILY [facility] Last Admin: 05/12/20 11:17 Dose: 0.6 mg Documented by: Diltiazem HCl (Diltiazem) 20 mg IVPUSH Q4H PRN PRN Reason: Afib Diltiazem HCl (Cardizem Cd) 120 mg PO DAILY [facility] Last Admin: 05/12/20 12:19 Dose: 120 mg Documented by: Ceftriaxone Sodium/Dextrose 1 (gm/ Premix) 50 mls @ 100 mls/hr IV Q24H [facility] Last Admin: 05/11/20 22:38 Dose: 100 mls/hr Documented by: Metoprolol Tartrate (Lopressor) 25 mg PO Q12H [facility] Last Admin: 05/12/20 08:07 Dose: 25 mg Documented by: Morphine Sulfate (Morphine) 2 mg IVPUSH Q4H PRN PRN Reason: Pain (severe 7-10) Stop: 05/12/20 20:43 Last Admin: 05/12/20 12:18 Dose: 2 mg Documented by: Ondansetron HCl (Zofran) 4 mg IVPUSH Q4H PRN PRN Reason: Nausea Sodium Chloride (Saline Flush) 2.5 ml FLUSH ASDIRECTED PRN PRN Reason: Keep Vein Open Last Admin: 05/11/20 16:16 Dose: 2.5 ml Documented by: Sodium Chloride (Saline Flush) 10 ml FLUSH ASDIRECTED PRN PRN Reason: Keep Vein Open Last Admin: 05/11/20 16:16 Dose: 10 ml Documented by: Discontinued Medications Colchicine (Colcrys) 1.2 mg PO ONETIME ONE Stop: 05/11/20 20:46 Last Admin: 05/11/20 22:39 Dose: 1.2 mg Documented by: Colchicine (Colcrys) 0.6 mg PO ONETIME ONE Stop: 05/11/20 21:46 Last Admin: 05/12/20 02:15 Dose: Not Given Documented by: Colchicine (Colcrys) Confirm Administered Dose 0.6 mg .ROUTE .STK-MED ONE Stop: 05/12/20 01:55 Last Admin: 05/12/20 02:46 Dose: 0.6 mg Documented by: Diltiazem HCl (Diltiazem) 20 mg IVPUSH ONETIME ONE Stop: 05/11/20 16:12 Last Admin: 05/11/20 16:17 Dose: 20 mg Documented by: Diltiazem HCl (Diltiazem) 10 mg IVPUSH ONETIME ONE Stop: 05/11/20 17:18 Last Admin: 05/11/20 17:34 Dose: 10 mg Documented by: Diltiazem HCl (Diltiazem) 10 mg IVPUSH ONETIME ONE Stop: 05/11/20 18:55 Last Admin: 05/11/20 18:59 Dose: 10 mg Documented by: Diltiazem HCl (Cardizem Cd) 120 mg PO ONETIME ONE Stop: 05/11/20 19:29 Last Admin: 05/11/20 20:09 Dose: Not Given Documented by: Diltiazem HCl (Diltiazem) 20 mg IVPUSH ONETIME ONE Stop: 05/12/20 06:32 Last Admin: 05/12/20 06:49 Dose: 20 mg Documented by: Hydromorphone HCl (Dilaudid) 0.5 mg IVPUSH ONETIME ONE Stop: 05/11/20 18:35 Last Admin: 05/11/20 18:43 Dose: 0.5 mg Documented by: Sodium Chloride (Normal Saline) 1,000 mls @ 999 mls/hr IV BOLUS ONE Stop: 05/11/20 17:11 Last Admin: 05/11/20 16:17 Dose: 999 mls/hr Documented by: Diltiazem HCl 100 mg/ Sodium (Chloride) 100 mls @ 5 mls/hr IV NOW DAVID; Protocol Last Admin: 05/11/20 18:43 Dose: 5 mg/hr, 5 mls/hr Documented by: Iopamidol (Isovue Multipack-370 (76%)) 100 ml IVPUSH ONETIME STA Stop: 05/11/20 19:47 Last Admin: 05/11/20 19:56 Dose: 100 ml Documented by: Ketorolac Tromethamine (Toradol) 30 mg IVPUSH ONETIME ONE Stop: 05/11/20 18:35 Last Admin: 05/11/20 18:43 Dose: 30 mg Documented by: Morphine Sulfate (Morphine) 2 mg IVPUSH Q4H PRN PRN Reason: Pain (severe 7-10) Stop: 05/12/20 20:43 - Exam General: Alert, Oriented, Cooperative, No Acute Distress Lungs: Clear to Auscultation, Normal Respiratory Effort Cardiovascular: Regular Rate, Irregular Rhythm GI/Abdominal Exam: Normal Bowel Sounds, Soft, Non-Tender Extremities: Normal Inspection, Normal Range of Motion, Non-Tender Skin: Other (Bursitis noted to left elbow not erythematous) Wound/Incisions: Erythema (Noted to left great toe with tenderness gout present.) Neurological: No New Focal Deficit Psy/Mental Status: Alert, Normal Affect, Normal Mood - Patient Data Lab Results Last 24 hrs: Laboratory Results - last 24 hr 05/11/20 05/11/20 05/11/20 Range/Units 16:11 16:11 16:11 WBC 10.90 (4.0-11.0) K/uL RBC 5.90 (4.50-5.90) M/uL Hgb 18.9 H (13.0-17.0) g/dL Hct 54.4 H (38.0-50.0) % MCV 92.2 (80.0-98.0) fL MCH 32.0 (27.0-32.0) pg MCHC 34.7 (31.0-37.0) g/dL RDW Std Deviation 48.8 (28.0-62.0) fl RDW Coeff of [place]ck[place] 15 (11.0-15.0) % Plt Count 240 (150-400) K/uL MPV 10.00 (7.40-12.00) fL Neut % (Auto) 57.1 (48.0-80.0) % Lymph % (Auto) 34.2 (16.0-40.0) % [place] % (Auto) 8.2 (0.0-15.0) % Eos % (Auto) 0.3 (0.0-7.0) % Baso % (Auto) 0.2 (0.0-1.5) % Neut # (Auto) 6.2 H (1.4-5.7) K/uL Lymph # (Auto) 3.7 H (0.6-2.4) K/uL [place] # (Auto) 0.9 H (0.0-0.8) K/uL Eos # (Auto) 0.0 (0.0-0.7) K/uL Baso # (Auto) 0.0 (0.0-0.1) K/uL Nucleated RBC % 0.0 /100WBC Nucleated RBCs # 0 K/uL D-Dimer, Quantitative (0.0-0.50) mg/L FEU Sodium 139 (136-148) mmol/L Potassium 4.6 (3.5-5.1) mmol/L Chloride 100 (98-107) mmol/L Carbon Dioxide 22.5 (21.0-32.0) mmol/L BUN 16 (7.0-18.0) mg/dL Creatinine 1.4 H (0.8-1.3) mg/dL Est Cr Clr Drug Dosing 60.05 mL/min Estimated GFR (MDRD) 51.4 ml/min Glucose 128 H (74-106) mg/dL Uric Acid (2.6-7.2) mg/dL Calcium 9.7 (8.5-10.1) mg/dL Phosphorus (2.6-4.7) mg/dL Magnesium (1.8-2.4) mg/dL Total Bilirubin 2.2 H (0.2-1.0) mg/dL AST 23 (15-37) IU/L ALT 21 (14-63) IU/L Alkaline Phosphatase 63 (46-116) U/L Troponin I < 0.050 (0.000-0.056) ng/mL B-Natriuretic Peptide 204 H (<100) PG/ML Total Protein 8.3 H (6.4-8.2) g/dL Albumin 4.1 (3.4-5.0) g/dL Globulin 4.2 H (2.6-4.0) g/dL Albumin/Globulin Ratio 1.0 (0.9-1.6) TSH 3rd Generation (0.36-3.74) uIU/mL Urine Color Urine Appearance Urine pH (5.0-8.0) Ur Specific [place] (1.001-1.035) Urine Protein (NEGATIVE) mg/dL Urine Glucose (UA) (NEGATIVE) mg/dL Urine Ketones (NEGATIVE) mg/dL Urine Occult Blood (NEGATIVE) Urine Nitrite (NEGATIVE) Urine Bilirubin (NEGATIVE) Urine Ictotest Urine Urobilinogen (<2.0) EU/dL Ur Leukocyte Esterase (NEGATIVE) U Hyaline Cast (Auto) (0-2/LPF) Urine RBC (0-2/HPF) Urine WBC (0-5/HPF) Ur Epithelial Cells (NONE-FEW) Urine Bacteria (NEGATIVE) Influenza Type A RNA (NEGATIVE) Influenza Type B RNA (NEGATIVE) SARS-CoV-2 RNA (FRANSICO) (NEGATIVE) 05/11/20 05/11/20 05/11/20 Range/Units 16:11 16:11 16:11 WBC (4.0-11.0) K/uL RBC (4.50-5.90) M/uL Hgb (13.0-17.0) g/dL Hct (38.0-50.0) % MCV (80.0-98.0) fL MCH (27.0-32.0) pg MCHC (31.0-37.0) g/dL RDW Std Deviation (28.0-62.0) fl RDW Coeff of [place]ck[place] (11.0-15.0) % Plt Count (150-400) K/uL MPV (7.40-12.00) fL Neut % (Auto) (48.0-80.0) % Lymph % (Auto) (16.0-40.0) % [place] % (Auto) (0.0-15.0) % Eos % (Auto) (0.0-7.0) % Baso % (Auto) (0.0-1.5) % Neut # (Auto) (1.4-5.7) K/uL Lymph # (Auto) (0.6-2.4) K/uL [place] # (Auto) (0.0-0.8) K/uL Eos # (Auto) (0.0-0.7) K/uL Baso # (Auto) (0.0-0.1) K/uL Nucleated RBC % /100WBC Nucleated RBCs # K/uL D-Dimer, Quantitative 0.85 H (0.0-0.50) mg/L FEU Sodium (136-148) mmol/L Potassium (3.5-5.1) mmol/L Chloride (98-107) mmol/L Carbon Dioxide (21.0-32.0) mmol/L BUN (7.0-18.0) mg/dL Creatinine (0.8-1.3) mg/dL Est Cr Clr Drug Dosing mL/min Estimated GFR (MDRD) ml/min Glucose (74-106) mg/dL Uric Acid 11.4 H (2.6-7.2) mg/dL Calcium (8.5-10.1) mg/dL Phosphorus (2.6-4.7) mg/dL Magnesium 2.2 2.1 (1.8-2.4) mg/dL Total Bilirubin (0.2-1.0) mg/dL AST (15-37) IU/L ALT (14-63) IU/L Alkaline Phosphatase (46-116) U/L Troponin I (0.000-0.056) ng/mL B-Natriuretic Peptide (<100) PG/ML Total Protein (6.4-8.2) g/dL Albumin (3.4-5.0) g/dL Globulin (2.6-4.0) g/dL Albumin/Globulin Ratio (0.9-1.6) TSH 3rd Generation 1.19 (0.36-3.74) uIU/mL Urine Color Urine Appearance Urine pH (5.0-8.0) Ur Specific [place] (1.001-1.035) Urine Protein (NEGATIVE) mg/dL Urine Glucose (UA) (NEGATIVE) mg/dL Urine Ketones (NEGATIVE) mg/dL Urine Occult Blood (NEGATIVE) Urine Nitrite (NEGATIVE) Urine Bilirubin (NEGATIVE) Urine Ictotest Urine Urobilinogen (<2.0) EU/dL Ur Leukocyte Esterase (NEGATIVE) U Hyaline Cast (Auto) (0-2/LPF) Urine RBC (0-2/HPF) Urine WBC (0-5/HPF) Ur Epithelial Cells (NONE-FEW) Urine Bacteria (NEGATIVE) Influenza Type A RNA (NEGATIVE) Influenza Type B RNA (NEGATIVE) SARS-CoV-2 RNA (FRANSICO) (NEGATIVE) 05/11/20 05/11/20 05/12/20 Range/Units 17:10 18:45 05:17 WBC 7.60 (4.0-11.0) K/uL RBC 4.96 (4.50-5.90) M/uL Hgb 15.6 (13.0-17.0) g/dL Hct 46.0 (38.0-50.0) % MCV 92.7 (80.0-98.0) fL MCH 31.5 (27.0-32.0) pg MCHC 33.9 (31.0-37.0) g/dL RDW Std Deviation 48.2 (28.0-62.0) fl RDW Coeff of Mckenna 14 (11.0-15.0) % Plt Count 210 (150-400) K/uL MPV 10.00 (7.40-12.00) fL Neut % (Auto) 42.4 L (48.0-80.0) % Lymph % (Auto) 45.3 H (16.0-40.0) % [place] % (Auto) 11.1 (0.0-15.0) % Eos % (Auto) 0.9 (0.0-7.0) % Baso % (Auto) 0.3 (0.0-1.5) % Neut # (Auto) 3.2 (1.4-5.7) K/uL Lymph # (Auto) 3.4 H (0.6-2.4) K/uL [place] # (Auto) 0.8 (0.0-0.8) K/uL Eos # (Auto) 0.1 (0.0-0.7) K/uL Baso # (Auto) 0.0 (0.0-0.1) K/uL Nucleated RBC % 0.0 /100WBC Nucleated RBCs # 0 K/uL D-Dimer, Quantitative (0.0-0.50) mg/L FEU Sodium (136-148) mmol/L Potassium (3.5-5.1) mmol/L Chloride (98-107) mmol/L Carbon Dioxide (21.0-32.0) mmol/L BUN (7.0-18.0) mg/dL Creatinine (0.8-1.3) mg/dL Est Cr Clr Drug Dosing mL/min Estimated GFR (MDRD) ml/min Glucose (74-106) mg/dL Uric Acid (2.6-7.2) mg/dL Calcium (8.5-10.1) mg/dL Phosphorus (2.6-4.7) mg/dL Magnesium (1.8-2.4) mg/dL Total Bilirubin (0.2-1.0) mg/dL AST (15-37) IU/L ALT (14-63) IU/L Alkaline Phosphatase (46-116) U/L Troponin I (0.000-0.056) ng/mL B-Natriuretic Peptide (<100) PG/ML Total Protein (6.4-8.2) g/dL Albumin (3.4-5.0) g/dL Globulin (2.6-4.0) g/dL Albumin/Globulin Ratio (0.9-1.6) TSH 3rd Generation (0.36-3.74) uIU/mL Urine Color YELLOW Urine Appearance HAZY Urine pH 5.0 (5.0-8.0) Ur Specific [place] >= 1.030 (1.001-1.035) Urine Protein 30 H (NEGATIVE) mg/dL Urine Glucose (UA) NEGATIVE (NEGATIVE) mg/dL Urine Ketones 15 H (NEGATIVE) mg/dL Urine Occult Blood TRACE-INTACT H (NEGATIVE) Urine Nitrite POSITIVE H (NEGATIVE) Urine Bilirubin LARGE H (NEGATIVE) Urine Ictotest NEGATIVE Urine Urobilinogen 1.0 (<2.0) EU/dL Ur Leukocyte Esterase NEGATIVE (NEGATIVE) U Hyaline Cast (Auto) MODERATE (0-2/LPF) Urine RBC 0-2 (0-2/HPF) Urine WBC 0-3 (0-5/HPF) Ur Epithelial Cells FEW (NONE-FEW) Urine Bacteria 1+ H (NEGATIVE) Influenza Type A RNA NEGATIVE (NEGATIVE) Influenza Type B RNA NEGATIVE (NEGATIVE) SARS-CoV-2 RNA (FRANSICO) NEGATIVE (NEGATIVE) 05/12/20 Range/Units 05:17 WBC (4.0-11.0) K/uL RBC (4.50-5.90) M/uL Hgb (13.0-17.0) g/dL Hct (38.0-50.0) % MCV (80.0-98.0) fL MCH (27.0-32.0) pg MCHC (31.0-37.0) g/dL RDW Std Deviation (28.0-62.0) fl RDW Coeff of Mckenna (11.0-15.0) % Plt Count (150-400) K/uL MPV (7.40-12.00) fL Neut % (Auto) (48.0-80.0) % Lymph % (Auto) (16.0-40.0) % [place] % (Auto) (0.0-15.0) % Eos % (Auto) (0.0-7.0) % Baso % (Auto) (0.0-1.5) % Neut # (Auto) (1.4-5.7) K/uL Lymph # (Auto) (0.6-2.4) K/uL [place] # (Auto) (0.0-0.8) K/uL Eos # (Auto) (0.0-0.7) K/uL Baso # (Auto) (0.0-0.1) K/uL Nucleated RBC % /100WBC Nucleated RBCs # K/uL D-Dimer, Quantitative (0.0-0.50) mg/L FEU Sodium 140 (136-148) mmol/L Potassium 4.1 (3.5-5.1) mmol/L Chloride 106 (98-107) mmol/L Carbon Dioxide 20.7 L (21.0-32.0) mmol/L BUN 21 H (7.0-18.0) mg/dL Creatinine 1.3 (0.8-1.3) mg/dL Est Cr Clr Drug Dosing 64.67 mL/min Estimated GFR (MDRD) 55.9 ml/min Glucose 87 (74-106) mg/dL Uric Acid (2.6-7.2) mg/dL Calcium 8.5 (8.5-10.1) mg/dL Phosphorus 4.3 (2.6-4.7) mg/dL Magnesium 2.1 (1.8-2.4) mg/dL Total Bilirubin 1.0 (0.2-1.0) mg/dL AST 17 (15-37) IU/L ALT 18 (14-63) IU/L Alkaline Phosphatase 48 (46-116) U/L Troponin I (0.000-0.056) ng/mL B-Natriuretic Peptide (<100) PG/ML Total Protein 6.7 (6.4-8.2) g/dL Albumin 3.4 (3.4-5.0) g/dL Globulin 3.3 (2.6-4.0) g/dL Albumin/Globulin Ratio 1.0 (0.9-1.6) TSH 3rd Generation (0.36-3.74) uIU/mL Urine Color Urine Appearance Urine pH (5.0-8.0) Ur Specific [place] (1.001-1.035) Urine Protein (NEGATIVE) mg/dL Urine Glucose (UA) (NEGATIVE) mg/dL Urine Ketones (NEGATIVE) mg/dL Urine Occult Blood (NEGATIVE) Urine Nitrite (NEGATIVE) Urine Bilirubin (NEGATIVE) Urine Ictotest Urine Urobilinogen (<2.0) EU/dL Ur Leukocyte Esterase (NEGATIVE) U Hyaline Cast (Auto) (0-2/LPF) Urine RBC (0-2/HPF) Urine WBC (0-5/HPF) Ur Epithelial Cells (NONE-FEW) Urine Bacteria (NEGATIVE) Influenza Type A RNA (NEGATIVE) Influenza Type B RNA (NEGATIVE) SARS-CoV-2 RNA (FRANSICO) (NEGATIVE) Result Diagrams: 05/12/20 05:17 05/12/20 05:17 Sepsis Event Note - Evaluation Sepsis Screening Result: No Definite Risk - Focused Exam Vital Signs: Vital Signs Temp Pulse Pulse Resp BP BP Pulse Ox 05/12/20 12:19 105 H 111/90 05/12/20 11:20 98.0 F 105 H 16 111/90 96 05/12/20 08:07 94 136/91 H 05/12/20 07:41 97.3 F 94 18 136/91 H 96 - Problem List & Annotations (1) Atrial fibrillation with rapid ventricular response SNOMED Code(s): 836629320284503 Code(s): I48.91 - UNSPECIFIED ATRIAL FIBRILLATION Status: Acute Priority: High Current Visit: No (2) HTN (hypertension) SNOMED Code(s): 16571133 Code(s): I10 - ESSENTIAL (PRIMARY) HYPERTENSION Status: Chronic Current Visit: Yes (3) UTI (urinary tract infection) SNOMED Code(s): 78365561 Code(s): N39.0 - URINARY TRACT INFECTION, SITE NOT SPECIFIED Status: Acute Current Visit: Yes (4) Chronic renal insufficiency SNOMED Code(s): 099824824 Code(s): N18.9 - CHRONIC KIDNEY DISEASE, UNSPECIFIED Status: Chronic Current Visit: No (5) Gout SNOMED Code(s): 15602851 Code(s): M10.9 - GOUT, UNSPECIFIED Status: Acute Current Visit: No Qualifiers: Gout site: toe Gout etiology: unspecified cause Chronicity: acute Laterality: left Qualified Code(s): M10.9 - Gout, unspecified (6) Hypothyroidism SNOMED Code(s): 94152390 Code(s): E03.9 - HYPOTHYROIDISM, UNSPECIFIED Status: Chronic Current Visit: No (7) Noncompliance with medications SNOMED Code(s): 168048230 Code(s): Z91.14 - PATIENT'S OTHER NONCOMPLIANCE WITH MEDICATION REGIMEN Status: Chronic Current Visit: No (8) CHF (congestive heart failure) SNOMED Code(s): 44329153 Code(s): I50.9 - HEART FAILURE, UNSPECIFIED Status: Chronic Priority: High Current Visit: No Qualifiers: (9) Anticoagulation adequate SNOMED Code(s): 526151604, 436427884 Code(s): Z79.01 - CLINIC PHYSICIAN (CURRENT) USE OF ANTICOAGULANTS Status: Chronic Current Visit: Yes - Problem List Review Problem List Initiated/Reviewed/Updated: Yes - My Orders Last 24 Hours: My Active Orders 05/12/20 10:30 Apixaban [Eliquis] 5 mg PO BID Colchicine [Colcrys] 0.6 mg PO DAILY 05/12/20 11:30 Diltiazem [Cardizem CD] 120 mg PO DAILY - Plan Plan:: This 64-year-old male admitted with atrial fibrillation RVR and acute gout to left great toe 1. Atrial fibrillation RVR -Rate controlled most of the night did require 20 mg of diltiazem this morning around 6 AM. -Continue on telemetry. - metoprolol tartrate 25 mg BID. -Restart home Eliquis 5 mg twice daily - CT angio: no PE. -We will start diltiazem 120 mg p.o. today -Monitor heart rate 2. Acute gout of left great toe: - Colchicine 0.6 mg daily -Morphine as needed -We will start Welches as needed as well -Has follow-up with podiatry 05/17/2020 3. UTI: - IV rocephin. -UC pending -Denies any dysuria frequency urgency or rectal pain. Denies any history of any prostate issues. 4. Past medical history of CKD, HTN and CHF: - Continue home medications. VTE prophylaxis; Eliquis CODE STATUS: Full code Dispo: 1 to 2 days.
[2020-05-12] MEDS ORDERED: Sodium Chloride 0.9% 2.5 ML Syringe FLUSH PRN (13:30)
[2020-05-12] MEDS: cefTRIAXone 1 GM in Premix Bag 1 BAG IV SCH (22:11)
[2020-05-13] MEDS: Morphine 2 MG/ML SYRINGE IVPUSH PRN ×2 (00:38→06:06)
[2020-05-13] MEDS: Acetaminophen/HYDROcodone 325-10 MG Tab PO PRN ×2 (02:54→08:50)
[2020-05-13 06:48] LABS: BLOOD UREA NITROGEN,BUN 15 mg/dL (7.0-18.0); CARBON DIOXIDE,CO2 21.6 mmol/L (21.0-32.0); CHLORIDE,CL 106 mmol/L (98-107); GLUCOSE RANDOM 88 mg/dL (74-106); POTASSIUM,K 4.4 mmol/L (3.5-5.1); SODIUM,NA 139 mmol/L (136-148)
[2020-05-13] MEDS ORDERED: Metoprolol Tartrate 50 MG Tab PO SCH (07:43)
[2020-05-13] MEDS: Colchicine 0.6 MG Tab PO SCH (08:12)
[2020-05-13] MEDS: Apixaban 5 MG Tab PO SCH (08:13)
[2020-05-13] MEDS: Diltiazem 120 MG Cap.CD PO SCH (08:13)
[2020-05-13 11:43] VITALS: BP 114/90; PULSE 90
--- NOTE | 2020-05-13 12:23 | PCM.DCSUM1 ---
Discharge Summary - Hospital Course Brief History: 64-year-old male presents today complaining of left great toe pain as well as mild SOB and palpitations. He has a PMH of a-fib, CKD, HTN, CHF and gout. Patient reports that he ran out of his metoprolol several days ago. He also takes a blood thinner that starts with a "P" but cannot recall exactly what the name is. He states that he did take his blood this morning. For his toe pain, he usually takes colchicine and last took it a few days ago. He has not had any fevers, chills, sore throat, cough, chest pain, nausea, vomiting, abdominal pain, diarrhea, blood in stool, blood in urine, urinary urgency, numbness or tingling in extremities. In the ER, EKG showed a-fib with HR 112 and T-wave inversions in V3-V6. Creatinine was 1.4, D-dimer 0.85, BNP 204 and troponin was negative. UA positive for nitrites and 1+ bacteria. CXR unremarkable. COVID-19 test negative. Patient was given IV diltiazem push x 3 and then became rate controlled with HR [address] angio negative for PE. Patient admitted for further evaluation and treatment. - Discharge Data Discharge Date: 05/13/20 Discharge Disposition: Home, Self-Care 01 Condition: Good - Referral to Home Health Primary Care Physician: Jae Maldonado Jr, MD - Discharge Diagnosis/Problem(s) (1) Atrial fibrillation with rapid ventricular response SNOMED Code(s): 142267908900563 ICD Code: I48.91 - UNSPECIFIED ATRIAL FIBRILLATION Status: Acute Priority: High (2) HTN (hypertension) SNOMED Code(s): 24223984 ICD Code: I10 - ESSENTIAL (PRIMARY) HYPERTENSION Status: Chronic (3) UTI (urinary tract infection) SNOMED Code(s): 19499067 ICD Code: N39.0 - URINARY TRACT INFECTION, SITE NOT SPECIFIED Status: Acute (4) Chronic renal insufficiency SNOMED Code(s): 356766144 ICD Code: N18.9 - CHRONIC KIDNEY DISEASE, UNSPECIFIED Status: Chronic (5) Gout SNOMED Code(s): 74481580 ICD Code: M10.9 - GOUT, UNSPECIFIED Status: Acute Qualifiers: Gout site: toe Gout etiology: unspecified cause Chronicity: acute Laterality: left Qualified Code(s): M10.9 - Gout, unspecified (6) Hypothyroidism SNOMED Code(s): 16015662 ICD Code: E03.9 - HYPOTHYROIDISM, UNSPECIFIED Status: Chronic (7) Noncompliance with medications SNOMED Code(s): 211505925 ICD Code: Z91.14 - PATIENT'S OTHER NONCOMPLIANCE WITH MEDICATION REGIMEN Status: Chronic (8) CHF (congestive heart failure) SNOMED Code(s): 46415822 ICD Code: I50.9 - HEART FAILURE, UNSPECIFIED Status: Chronic Priority: High Qualifiers: (9) Anticoagulation adequate SNOMED Code(s): 952799536, 543020970 ICD Code: Z79.01 - SNF (CURRENT) USE OF ANTICOAGULANTS Status: Chronic - Patient Summary/Data Consults: Consultations 05/13/20 08:09 PT Evaluation and Treatment [CONS] Routine Hospital Course: Admitting diagnoses A. fib RVR Acute gout left great toe Discharge diagnoses A. fib RVR resolved Acute gout left great toe Rec was admitted secondary to A. fib RVR. He was given diltiazem IV push multiple times in the ER which did not improve heart rate. He was restarted on his metoprolol 25 mg twice daily. Throughout the night he continued to need intermittent doses of diltiazem. He was started on diltiazem 120 mg p.o. Heart rate remained controlled and in A. fib. This morning he continued to have mild elevation during the night of heart rates in the 120s to 130s. Metoprolol increased to 50 mg twice daily. He also remained on his home Eliquis. We attempted to order an echo but patient declined as he reported he had an emergent situation going on that he needed to leave the hospital. Patient was also treated with colchicine for acute gout to left great toe. He reports he has podiatry appointment on the in which they are following him closely for this. He is to continue his colchicine previously ordered at home along with as needed Vicodin. He will be discharged home today with metoprolol 50 mg every 12 hours along with diltiazem 120 mg daily. He is also to continue taking his Eliquis. Echo prescription provided for outpatient imaging. These should be sent to PCP. He is to return to the ER clinic concerns should arise sooner than previous appointments scheduled. - Patient Instructions Diet: Heart Healthy Diet Activity: As Tolerated, No Strenuous Activities Driving: Do Not Drive Showering/Bathing: May Shower Notify Provider of: Fever, Increased Pain, Swelling and Redness, Drainage, Nausea and/or Vomiting - Discharge Plan *PRESCRIPTION DRUG MONITORING PROGRAM REVIEWED*: Not Applicable *COPY OF PRESCRIPTION DRUG MONITORING REPORT IN PATIENT MACHO: Not Applicable Prescriptions/Med Rec: Diltiazem [Cardizem CD] 120 mg PO DAILY #30 cap.cd Metoprolol Tartrate [Lopressor] 50 mg PO Q12H #60 tablet Home Medications: Home Meds Apixaban [Eliquis] 5 mg PO BID 05/12/20 [History] Colchicine 0.6 mg PO DAILY 05/12/20 [History] Diltiazem [Cardizem CD] 120 mg PO DAILY #30 cap.cd 05/13/20 [Rx] Metoprolol Tartrate [Lopressor] 50 mg PO Q12H #60 tablet 05/13/20 [Rx] Oxygen Therapy Mode: Room Air Patient Handouts: Metoprolol tablets, Gout, [id number], Diltiazem Oral Tablets, Atrial Fibrillation, [id number], Hypertension, Adult Referrals: Rosie Nunn MD [Ordering Only Provider] - 05/19/20 12:30 pm Leonardo Valencia MD [Ordering Only Provider] - 05/27/20 3:15 pm - Discharge Summary/Plan Comment DC Time >30 min.: No - Patient Data Vitals - Most Recent: Last Vital Signs Temp 97.6 F 05/13/20 11:41 Pulse 90 05/13/20 11:41 Resp 16 05/13/20 11:41 BP 114/90 05/13/20 11:41 Pulse Ox 97 05/13/20 11:41 Weight - Most Recent: 95.254 kg I&O - Last 24 hours: Intake & Output 05/12/20 05/13/20 05/13/20 22:59 06:59 14:59 Intake Total 840 800 Output Total 750 Balance 840 50 Lab Results - Last 24 hrs: Laboratory Results - last 24 hr 05/13/20 05/13/20 Range/Units 06:02 06:02 WBC 6.84 (4.0-11.0) K/uL RBC 5.00 (4.50-5.90) M/uL Hgb 15.7 (13.0-17.0) g/dL Hct 46.4 (38.0-50.0) % MCV 92.8 (80.0-98.0) fL MCH 31.4 (27.0-32.0) pg MCHC 33.8 (31.0-37.0) g/dL RDW Std Deviation 48.0 (28.0-62.0) fl RDW Coeff of Mckenna 14 (11.0-15.0) % Plt Count 206 (150-400) K/uL MPV 10.00 (7.40-12.00) fL Neut % (Auto) 45.4 L (48.0-80.0) % Lymph % (Auto) 43.1 H (16.0-40.0) % [place] % (Auto) 9.5 (0.0-15.0) % Eos % (Auto) 1.6 (0.0-7.0) % Baso % (Auto) 0.4 (0.0-1.5) % Neut # (Auto) 3.1 (1.4-5.7) K/uL Lymph # (Auto) 3.0 H (0.6-2.4) K/uL [place] # (Auto) 0.7 (0.0-0.8) K/uL Eos # (Auto) 0.1 (0.0-0.7) K/uL Baso # (Auto) 0.0 (0.0-0.1) K/uL Nucleated RBC % 0.0 /100WBC Nucleated RBCs # 0 K/uL Sodium 139 (136-148) mmol/L Potassium 4.4 (3.5-5.1) mmol/L Chloride 106 (98-107) mmol/L Carbon Dioxide 21.6 (21.0-32.0) mmol/L BUN 15 (7.0-18.0) mg/dL Creatinine 1.0 (0.8-1.3) mg/dL Est Cr Clr Drug Dosing 84.07 mL/min Estimated GFR (MDRD) > 60.0 ml/min Glucose 88 (74-106) mg/dL Calcium 8.4 L (8.5-10.1) mg/dL Magnesium 1.9 (1.8-2.4) mg/dL LONNY Results - Last 24 hrs: Microbiology 05/11/20 17:10 Urine Culture - Final Urine, Clean Catch No Growth Med Orders - Current: Current Medications Acetaminophen (Tylenol) 650 mg PO Q4H PRN PRN Reason: Pain (Mild 1-3)/fever Hydrocodone Bitart/Acetaminophen ([place] 325-10 Mg) 1 tab PO Q4H PRN PRN Reason: Pain Last Admin: 05/13/20 08:50 Dose: 1 tab Documented by: Apixaban (Eliquis) 5 mg PO BID [facility] Last Admin: 05/13/20 08:13 Dose: 5 mg Documented by: Colchicine (Colcrys) 0.6 mg PO DAILY [facility] Last Admin: 05/13/20 08:12 Dose: 0.6 mg Documented by: Diltiazem HCl (Diltiazem) 20 mg IVPUSH Q4H PRN PRN Reason: Afib Last Admin: 05/13/20 03:37 Dose: 20 mg Documented by: Diltiazem HCl (Cardizem Cd) 120 mg PO DAILY [facility] Last Admin: 05/13/20 08:13 Dose: 120 mg Documented by: Ceftriaxone Sodium/Dextrose 1 (gm/ Premix) 50 mls @ 100 mls/hr IV Q24H [facility] Last Admin: 05/12/20 22:11 Dose: 100 mls/hr Documented by: Metoprolol Tartrate (Lopressor) 50 mg PO Q12H [facility] Last Admin: 05/13/20 08:12 Dose: 50 mg Documented by: Ondansetron HCl (Zofran) 4 mg IVPUSH Q4H PRN PRN Reason: Nausea Sodium Chloride (Saline Flush) 2.5 ml FLUSH ASDIRECTED PRN PRN Reason: Keep Vein Open Discontinued Medications Colchicine (Colcrys) 1.2 mg PO ONETIME ONE Stop: 05/11/20 20:46 Last Admin: 05/11/20 22:39 Dose: 1.2 mg Documented by: Colchicine (Colcrys) 0.6 mg PO ONETIME ONE Stop: 05/11/20 21:46 Last Admin: 05/12/20 02:15 Dose: Not Given Documented by: Colchicine (Colcrys) Confirm Administered Dose 0.6 mg .ROUTE .STK-MED ONE Stop: 05/12/20 01:55 Last Admin: 05/12/20 02:46 Dose: 0.6 mg Documented by: Diltiazem HCl (Diltiazem) 20 mg IVPUSH ONETIME ONE Stop: 05/11/20 16:12 Last Admin: 05/11/20 16:17 Dose: 20 mg Documented by: Diltiazem HCl (Diltiazem) 10 mg IVPUSH ONETIME ONE Stop: 05/11/20 17:18 Last Admin: 05/11/20 17:34 Dose: 10 mg Documented by: Diltiazem HCl (Diltiazem) 10 mg IVPUSH ONETIME ONE Stop: 05/11/20 18:55 Last Admin: 05/11/20 18:59 Dose: 10 mg Documented by: Diltiazem HCl (Cardizem Cd) 120 mg PO ONETIME ONE Stop: 05/11/20 19:29 Last Admin: 05/11/20 20:09 Dose: Not Given Documented by: Diltiazem HCl (Diltiazem) 20 mg IVPUSH ONETIME ONE Stop: 05/12/20 06:32 Last Admin: 05/12/20 06:49 Dose: 20 mg Documented by: Hydromorphone HCl (Dilaudid) 0.5 mg IVPUSH ONETIME ONE Stop: 05/11/20 18:35 Last Admin: 05/11/20 18:43 Dose: 0.5 mg Documented by: Sodium Chloride (Normal Saline) 1,000 mls @ 999 mls/hr IV BOLUS ONE Stop: 05/11/20 17:11 Last Admin: 05/11/20 16:17 Dose: 999 mls/hr Documented by: Diltiazem HCl 100 mg/ Sodium (Chloride) 100 mls @ 5 mls/hr IV NOW DAVID; Protocol Last Admin: 05/11/20 18:43 Dose: 5 mg/hr, 5 mls/hr Documented by: Iopamidol (Isovue Multipack-370 (76%)) 100 ml IVPUSH ONETIME STA Stop: 05/11/20 19:47 Last Admin: 05/11/20 19:56 Dose: 100 ml Documented by: Ketorolac Tromethamine (Toradol) 30 mg IVPUSH ONETIME ONE Stop: 05/11/20 18:35 Last Admin: 05/11/20 18:43 Dose: 30 mg Documented by: Metoprolol Tartrate (Lopressor) 25 mg PO Q12H DAVID Last Admin: 05/12/20 20:14 Dose: 25 mg Documented by: Morphine Sulfate (Morphine) 2 mg IVPUSH Q4H PRN PRN Reason: Pain (severe 7-10) Stop: 05/12/20 20:43 Morphine Sulfate (Morphine) 2 mg IVPUSH Q4H PRN PRN Reason: Pain (severe 7-10) Last Admin: 05/13/20 06:06 Dose: 2 mg Documented by: Sodium Chloride (Saline Flush) 2.5 ml FLUSH ASDIRECTED PRN PRN Reason: Keep Vein Open Last Admin: 05/11/20 16:16 Dose: 2.5 ml Documented by: Sodium Chloride (Saline Flush) 10 ml FLUSH ASDIRECTED PRN PRN Reason: Keep Vein Open Last Admin: 05/11/20 16:16 Dose: 10 ml Documented by: - Exam General: Reports: Alert, Cooperative, No Acute Distress Lungs: Reports: Clear to Auscultation, Normal Respiratory Effort Cardiovascular: Reports: Regular Rate, Irregular Rhythm GI/Abdominal Exam: Normal Bowel Sounds, Soft, Non-Tender Extremities: Normal Inspection, Normal Range of Motion, Non-Tender, Other (Tenderness to left great toe due to gout appears to be less erythematous today and less swollen.) Wound/Incisions: Reports: No Drainage, Erythema Improving (Left great toe) Neurological: Reports: No New Focal Deficit Psy/Mental Status: Reports: Alert, Normal Affect, Normal Mood
== END 2020-05-13 12:55 | disposition home or self-care (01) ==
LOC: MW.ED 15:44 → MW.MS 20:32
PROVIDERS: ADMIT Internal Medicine; ATTEND Internal Medicine
DX: I48.91 Unspecified atrial fibrillation (principal); M10.9 Gout, unspecified; M25.572 Pain in left ankle and joints of left foot; I13.0 Hypertensive heart and chronic kidney disease with heart failure and stage 1 through stage 4 chronic kidney disease, or unspecified chronic kidney disease; I50.9 Heart failure, unspecified; N18.9 Chronic kidney disease, unspecified; N39.0 Urinary tract infection, site not specified; I25.10 Atherosclerotic heart disease of native coronary artery without angina pectoris; R79.1 Abnormal coagulation profile; E03.9 Hypothyroidism, unspecified; E78.00 Pure hypercholesterolemia, unspecified; Z20.822 Contact with and (suspected) exposure to COVID-19; Z79.01 Long term (current) use of anticoagulants; Z79.899 Other long term (current) drug therapy; Z91.14 Patient's other noncompliance with medication regimen; Z98.890 Other specified postprocedural states
CPT/HCPCS: 0240U; 36415; 71045; 71275; 80048; 80053; 81001; 83735; 83880; 84100; 84443; 84484; 84550; 85025; 85379; 87086; 93005; 97161; A9270; J0696; J1170; J1885; J2270; J3490; J7030; Q9967; 99217; 99219; 99225

== ENCOUNTER 2025-01-22 19:39 | Emergency (ER) | payer MEDICAID, MEDICARE ==
[2025-01-22] MEDS ORDERED: Sodium Chloride 0.9% 10 ML Syringe FLUSH PRN (19:47)
[2025-01-22] MEDS ORDERED: Sodium Chloride 0.9% 2.5 ML Syringe FLUSH PRN (19:47)
[2025-01-22 19:58] LABS: BASOPHILS ABSOLUTE AUTO 0.10 K/uL (0.00-0.20); BASOPHILS PERCENT AUTO 0.9 % (0.0-1.0); EOSINOPHILS ABSOLUTE AUTO 0.16 K/uL (0.00-0.45); EOSINOPHILS PERCENT AUTO 1.4 % (0.0-6.0); IMMATURE GRAN ABSOLUTE AUTO 0.12 K/uL (0.00-0.05); IMMATURE GRAN PERCENT AUTO 1.1 % (0.0-0.4); LYMPHOCYTES ABSOLUTE AUTO 3.61 K/uL (1.00-4.80); LYMPHOCYTES PERCENT AUTO 32.1 % (24.0-44.0); MEAN PLATELET VOLUME 9.6 fL (9.4-12.4); MONOCYTES ABSOLUTE AUTO 1.41 K/uL (0.00-0.80); MONOCYTES PERCENT AUTO 12.6 % (0.0-8.0); NEUTROPHILS ABSOLUTE AUTO 5.83 K/uL (1.80-7.70); NEUTROPHILS PERCENT AUTO 51.9 % (41.0-71.0); NRBC ABSOLUTE 0.00 K/uL (0.00-0.02); NRBC PERCENT 0.0 /100WBC (0.0-0.2); PLATELET COUNT,PLT 317 K/uL (150-400); RED BLOOD CELL COUNT 5.22 M/uL (4.52-5.90); WHITE BLOOD CELL COUNT,WBC 11.23 K/uL (3.9-11.3)
[2025-01-22] MEDS: Iopamidol 755 Mg/ML 100 ML Bottle IVPUSH ONE (20:02)
[2025-01-22 20:07] LABS: INR 1.09 (0.86-1.11); PTT,PARTIAL THROMBOPLSTIN TIME 30.7 SEC (23.9-30.7)
[2025-01-22 20:11] LABS: A/G RATIO 0.9 (0.9-1.6); ALANINE AMINOTRANSFERASE,ALT 34.0 IU/L (14-63); ASPARTATE AMNIOTRANSFERASE,AST 31.0 IU/L (15-37); BILIRUBIN TOTAL 1.1 mg/dL (0.2-1.0); BLOOD UREA NITROGEN,BUN 14.0 mg/dL (7.0-18.0); CARBON DIOXIDE,CO2 28.4 mmol/L (21.0-32.0); CHLORIDE,CL 100.0 mmol/L (98-107); CREATININE 1.5 mg/dL (0.8-1.3); EST CRCL DRUG DOSING (CG) 43.12 mL/min; GLUCOSE RANDOM 108.0 mg/dL (74-106); POTASSIUM,K 4.4 mmol/L (3.5-5.1); PROTEIN TOTAL,TP 7.8 g/dL (6.4-8.2); SODIUM,NA 137.0 mmol/L (136-148)
[2025-01-22 20:17] LABS: ESTIMATED GFR 51.0 mL/min (>60)
[2025-01-22] MEDS: Ondansetron 4 MG/2 ML SDV IVPUSH ONE (20:37)
[2025-01-23 00:25] VITALS: BP 147/89; PULSE 71
[2025-01-23 00:29] LABS: APPEARANCE,URINE CLEAR; GLUCOSE,URINE NEGATIVE (NEGATIVE); OCCULT BLOOD,URINE MODERATE (NEGATIVE)
[2025-01-23 00:31] LABS: EPITHELIAL CELLS,URINE FEW (NONE-FEW)
== END 2025-01-23 00:38 ==
LOC: MW.ED 19:39
DX: S32.040A Wedge compression fracture of fourth lumbar vertebra, initial encounter for closed fracture (principal); S22.010A Wedge compression fracture of first thoracic vertebra, initial encounter for closed fracture; I48.91 Unspecified atrial fibrillation; I11.0 Hypertensive heart disease with heart failure; I50.9 Heart failure, unspecified; I25.2 Old myocardial infarction; E66.9 Obesity, unspecified; Z68.41 Body mass index [BMI] 40.0-44.9, adult; Z79.01 Long term (current) use of anticoagulants; Z79.899 Other long term (current) drug therapy; W17.89XA Other fall from one level to another, initial encounter; Y99.0 Civilian activity done for income or pay
CPT/HCPCS: 36415; 70450; 71045; 72125; 73030; 74177; 80053; 81001; 83735; 85025; 85610; 85730; 86850; 86900; 86901; 96374; 96375; 96376; 99285; J2405; Q9967; J1171